=== PATIENT | male | born 1940 | race Caucasian/White ===

== ENCOUNTER 2017-03-06 12:26 | Emergency (ER) | payer MEDICARE ==
[~2017-03-06] VITALS: Ht 167.6 cm; Wt 73.0 kg
[~2017-03-06 12:26] MED LIST: AVOD0.5C PO
[2017-03-06 12:31] VITALS: BP 120/71; PULSE 83; RESP 18; TEMP 97.6; O2SAT 97
[2017-03-06] MEDS ORDERED: SODIUM CHLOR 0.9% 1000 ML INJ 1,000 ML IV ONE (12:45)
--- NOTE | 2017-03-06 12:51 | PD ---
HPI Chief Complaint: Dizziness Time Seen by Provider: 12:42 Travel History International Travel<30 days: No Contact w/Intl Traveler<30days: No Traveled to known affect area: No History of Present Illness HPI This is a 77-year-old male with history of hyperlipidemia, who presents here via EMS after he became lightheaded and dizzy while [place]. The patient states he was walking on the [place] and became progressively dizzy as the round went on. He got to the point where he nearly passed out. He said at that time he called EMS. When EMS arrived, they found his blood pressure to be 80/60. They administered I V fluids. When he arrives here is 130/70. He will ports feeling slightly weak. He denies any chest pain, chest pressure. He denies any shortness of breath. He denies any head or neck pain. PFSH Past Medical History High Cholesterol: Yes Diminished Hearing: No Inguinal Hernia: Yes Immunizations Current: Yes Tetanus Vaccination: Unknown Influenza Vaccination: No Past Surgical History Surgical History: No Previous Surgery Social History Alcohol Use: Yes (occ) Tobacco Use: No (QUIT 40 YRS AGO) Substance Use: No Allergies-Medications (Allergen,Severity, Reaction): Coded Allergies: No Known Allergies (Unverified , 03/06/17) Reported Meds & Prescriptions Reported Meds & Active Scripts Active No Active Prescriptions or Reported Medications Review of Systems Except as stated in HPI: all other systems reviewed are Neg General / Constitutional: No: Fever, Chills Eyes: No: Blurred Vision HENT: Positive: Lightheadedness, No: Headaches, Neck Pain Cardiovascular: No: Chest Pain or Discomfort, Palpitations Respiratory: No: Cough, Shortness of Breath Gastrointestinal: Positive: Nausea, No: Vomiting, Abdominal Pain Musculoskeletal: Positive: Weakness (generalized 1 the event happened.), No: Pain Neurologic: Positive: Weakness (generalized when the event happened.), Other ( patient does report that he occasionally gets numbness and tingling to his fingers.), No: Paresthesia, Sensory Disturbance Physical Exam Narrative GENERAL: Well-developed well-nourished male who is resting comfortably in the bed. He is in no obvious distress at this time. SKIN: Focused skin assessment warm/dry. HEAD: Atraumatic. Normocephalic. EYES: No scleral icterus. No injection or drainage. ENT: No nasal bleeding or discharge. Mucous membranes pink and slightly dry. NECK: Trachea midline. No JVD. CARDIOVASCULAR: Regular rate and rhythm. No murmur appreciated. RESPIRATORY: No accessory muscle use. Clear to auscultation. Breath sounds equal bilaterally. GASTROINTESTINAL: Abdomen soft, non-tender, nondistended. He states he occasionally has a bulge in his left lateral abdominal wall. I do not appreciate any bulge or masses. No obvious splenomegaly. MUSCULOSKELETAL: No obvious deformities. No clubbing. No cyanosis. No edema. NEUROLOGICAL: Awake and alert. No obvious cranial nerve deficits. Motor grossly within normal limits. Normal speech. PSYCHIATRIC: Appropriate mood and affect; insight and judgment normal. Data Data Last Documented VS Vital Signs Date Time Temp Pulse Resp B/P Pulse Ox O2 Delivery O2 Flow Rate FiO2 03/06/17 13:32 76 18 124/75 98 Room Air 03/06/17 12:31 97.6 Orders Electrocardiogram (03/06/17 12:43) Complete Blood Count With Diff (03/06/17 12:43) Comprehensive Metabolic Panel (03/06/17 12:43) Ckmb (Isoenzyme) Profile (03/06/17 12:43) Troponin I (03/06/17 12:43) Iv Access Insert/Monitor (03/06/17 12:43) Ecg Monitoring (03/06/17 12:43) Oximetry (03/06/17 12:43) Sodium Chlor 0.9% 1000 Ml Inj (Ns 1000 M (03/06/17 12:45) Sodium Chlorid 0.9% 500 Ml Inj (Ns 500 M (03/06/17 14:15) Labs Laboratory Tests Test 03/06/17 12:55 White Blood Count 8.8 TH/MM3 Red Blood Count 4.07 MIL/MM3 Hemoglobin 13.1 GM/DL Hematocrit 38.7 % Mean Corpuscular Volume 94.9 FL Mean Corpuscular Hemoglobin 32.2 PG Mean Corpuscular Hemoglobin 33.9 % Concent Red Cell Distribution Width 12.6 % Platelet Count 256 TH/MM3 Mean Platelet Volume 7.6 FL Neutrophils (%) (Auto) 79.4 % Lymphocytes (%) (Auto) 9.3 % Monocytes (%) (Auto) 8.8 % Eosinophils (%) (Auto) 1.5 % Basophils (%) (Auto) 1.0 % Neutrophils # (Auto) 7.0 TH/MM3 Lymphocytes # (Auto) 0.8 TH/MM3 Monocytes # (Auto) 0.8 TH/MM3 Eosinophils # (Auto) 0.1 TH/MM3 Basophils # (Auto) 0.1 TH/MM3 CBC Comment DIFF FINAL Differential Comment Sodium Level 139 MEQ/L Potassium Level 4.0 MEQ/L Chloride Level 108 MEQ/L Carbon Dioxide Level 22.0 MEQ/L Anion Gap 9 MEQ/L Blood Urea Nitrogen 28 MG/DL Creatinine 1.40 MG/DL Estimat Glomerular Filtration 49 ML/MIN Rate Random Glucose 131 MG/DL Calcium Level 8.3 MG/DL Total Bilirubin 0.6 MG/DL Aspartate Amino Transf 14 U/L (AST/SGOT) Alanine Aminotransferase 20 U/L (ALT/SGPT) Alkaline Phosphatase 72 U/L Total Creatine Kinase 97 U/L Troponin I LESS THAN 0.02 NG/ML Total Protein 7.2 GM/DL Albumin 3.5 GM/DL MDM Medical Decision Making Medical Screen Exam Complete: Yes Emergency Medical Condition: Yes Differential Diagnosis Heat exhaustion versus metabolic arrangement versus arrhythmia. Narrative Course 77-year-old male presents via EMS after having a near syncopal episode while playing golf in the hot heat. She has what appears to be acute kidney injury as well as mild hyperglycemia. He's been given 1.5 L of IV fluid. He feels much improved. He'll be discharged told to drink plenty of fluids. He is also instructed to follow up with a primary care physician for his blood glucose and further follow up on his kidney function. He is instructed to return if he develops any further symptoms. Diagnosis Primary Impression: Near syncope Additional Impressions: acute kidney injury/dehydration mild hyperglycemia Additional Instructions: Drink plenty of fluids. Follow up with primary care physician for reevaluation of your blood sugar and kidney function. Scripts No Active Prescriptions or Reported Meds Disposition: 01 DISCHARGE HOME Condition: Stable Vitaliy Granger MD Mar 06, 2017 12:51
[2017-03-06 12:54] VITALS: O2SAT 97
[2017-03-06 13:08] LABS: BASOPHIL # 0.1 TH/MM3 (0-0.2); EOSINOPHIL # 0.1 TH/MM3 (0-0.4); EOSINOPHIL % 1.5 % (0.0-4.0); HEMATOCRIT 38.7 % (39.0-51.0); HEMO FLAGS DIFF FINAL; LYMPH % 9.3 % (9.0-44.0); LYMPHOCYTE # 0.8 TH/MM3 (1.0-4.8); MEAN CELL VOLUME 94.9 FL (80.0-100.0); MEAN CORPUSCULAR HEMOGLOBIN 32.2 PG (27.0-34.0); MEAN CORPUSCULAR HGB CONC 33.9 % (32.0-36.0); MONO % 8.8 % (0.0-8.0); NEUT % 79.4 % (16.0-70.0); PLATELET COUNT 256 TH/MM3 (150-450); RED BLOOD COUNT 4.07 MIL/MM3 (4.50-5.90); RED CELL DISTRIBUTION WIDTH 12.6 % (11.6-17.2); WHITE BLOOD COUNT 8.8 TH/MM3 (4.0-11.0)
[2017-03-06 13:10] LABS: CHLORIDE 108 MEQ/L (98-107); SODIUM (NA) 139 MEQ/L (136-145)
[2017-03-06 13:14] LABS: ANION GAP 9 MEQ/L (5-15); BLOOD UREA NITROGEN 28 MG/DL (7-18)
[2017-03-06 13:17] LABS: ALT (GPT) 20 U/L (12-78); AST (GOT) 14 U/L (15-37); GLOMERULAR FILTRATION RATE 49 ML/MIN (>89)
[2017-03-06 13:19] LABS: TOTAL BILIRUBIN ADULT 0.6 MG/DL (0.2-1.0)
[2017-03-06 13:20] LABS: ALKALINE PHOSPHATASE 72 U/L (45-117)
[2017-03-06 13:32] VITALS: BP 124/75; PULSE 76; RESP 18; O2SAT 98
[2017-03-06 13:41] LABS: CREATINE KINASE 97 U/L (39-308)
[2017-03-06] MEDS ORDERED: SODIUM CHLORID 0.9% 500 ML INJ 500 ML IV ONE (14:15)
--- NOTE | 2017-03-06 15:08 | EKG ---
Date Performed: 03/06/2017 Time Performed: 12:57:08 PTAGE: 77 years EKG: Sinus rhythm LOW QRS VOLTAGE IN PRECORDIAL LEADS LEFT ANTERIOR FASCICULAR BLOCK POSSIBLE ANTERIOR MYOCARDIAL INFA RCTION ABNORMAL ECG NO PREVIOUS TRACING DOCTOR: Rigo Barraza Interpretating Date/Time 03/06/2017 15:07:09
[2017-03-06 15:50] VITALS: BP 132/62
== END 2017-03-06 15:54 | disposition home or self-care (01) ==
LOC: PHED 12:26
DX: R55 Syncope and collapse (principal); N17.9 Acute kidney failure, unspecified; E86.0 Dehydration; R73.9 Hyperglycemia, unspecified
CPT/HCPCS: 80053; 82550; 84484; 85025; 93005; 96360; 96361; 99284; J7030; J7040